=== PATIENT | female | born 1990 | race Caucasian/White ===

== ENCOUNTER 2025-02-07 13:47 | Emergency (ER) | payer OTHER, SELFPAY ==
--- NOTE | ~2025-02-07 | CT_ITS ---
CT abdomen pelvis w con Ordering provider: Lucretia Lanier APRN History: 34 years Female with . concern for perirectal abscess . Comparison: None. Technique: CT abdomen and pelvis with IV and without oral contrast. Automated exposure control and it erative reconstruction technique were employed. The dose-length product was 514.13 mGy-cm. 100 mL Omn ipaque 350 was given IV. Findings: VISUALIZED LOWER CHEST: Dependent atelectatic changes. UPPER ABDOMINAL ORGANS: Liver: Lobulated outline which may indicate cirrhosis. Clinical correlation and follow-up advised. Gallbladder: Cholelithiasis. Spleen: Normal. Stomach/duodenum: Normal. Pancreas: Normal. Adrenals: Normal. Kidneys: Normal. PELVIC ORGANS: The bladder is underfilled. Uterus: Normal. Small left ovarian follicle measuring 1.4 cm. BOWEL AND MESENTERY: Colon: No evidence of diverticulitis. Fecal material is loaded in the colon. Normal appendix. Small Bowel: Normal. No obstruction. Peritoneum/mesentery: No free air or free fluid. No mesenteric lymphadenopathy. RETROPERITONEUM: Normal aorta. No retroperitoneal lymphadenopathy. MUSCULOSKELETAL: Superficial soft tissues: Left perianal abscess is seen which measures 1.1 x 1.5 cm. Fat stranding al so seen in the area. Otherwise, The superficial soft tissues are normal. Bones: Normal spine. IMPRESSION: 1. Left perianal abscess measuring 1.1 x 1.5 cm. 2. Cholelithiasis. 3. Possible liver cirrhosis. Clinical correlation and further evaluation advised. 4. Constipation. Reviewed, dictated and finalized at location A. IMPRESSION: 1. Left perianal abscess measuring 1.1 x 1.5 cm. 2. Cholelithiasis. 3. Possible liver cirrhosis. Clinical correlation and further evaluation advis ed. 4. Constipation.
[2025-02-07 14:17] VITALS: BP 108/81; PULSE 90; RESP 18; TEMP 36.6; O2SAT 95
--- NOTE | 2025-02-07 14:50 | ED.SKABFB ---
HPI - Skin/Abscess/Foreign Bdy General Chief complaint: Skin/Abscess/Foreign Body <Lucretia Lanier APRN - Last Filed: 02/08/25 18:20> Stated complaint: abscess <Lucretia Lanier APRN - Last Filed: 02/08/25 18:20> Time Seen by Provider: 02/07/25 13:54 <Lucretia Lanier APRN - Last Filed: 02/08/25 18:20> History of Present Illness HPI narrative: Patient is a 34-year-old female presents to the ER with complaints of an abscess near her rectum. 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 Patient denies any urinary symptoms, recent fevers, or drainage from the rectum. She reports her last bowel movement was on Saturday and it was normal for her but painful. Patient endorses a significant history of mental health issues, peripheral neuropathy and seizures. <Lucretia Lanier APRN - Last Filed: 02/08/25 18:20> Related Data Allergies/Adverse reactions: Allergies Allergy/AdvReac Type Severity Reaction Status Date / Time fentanyl AdvReac Intermediate Agitated Verified 02/07/25 14:23 trazodone AdvReac Intermediate Agitated Verified 02/07/25 14:23 <Lucretia Lanier APRN - Last Filed: 02/08/25 18:20> Review of Systems Review of Systems: All systems reviewed & are unremarkable except as noted in HPI and below <Lucertia Lanier APRN - Last Filed: 02/08/25 18:20> Exam Narrative: GENERAL: Well appearing, well-nourished, non-toxic, in no acute distress. HEAD: Normocephalic, atraumatic. NECK: Supple. No adenopathy, no masses. RESPIRATORY: Airway patent, respirations nonlabored. Clear to auscultation bilaterally, no rales, rhonchi, wheezing. CARDIOVASCULAR: Regular rate and rhythm without murmurs, rubs, or gallops. Peripheral pulses 2+ and equal bilaterally. ABDOMINAL: Soft, nontender, nondistended, no hepatosplenomegaly. Normoactive BS. MUSCULOSKELETAL: Moves all extremities. Strength/ROM intact without gross deformities. SKIN: Warm, dry, normal color. No rashes. NEURO: A&O X3. Speech clear. Cranial nerves II-XII intact. No ataxic movements. PSYCHIATRIC: Appropriate mood and affect. Normal interaction. : Palpable indurated mass 9 o'clock position from pt's rectum. Approximately quarter-sized with palpation, firm. No discharge. No visualized head. <Lucretia Lanier, WIRELESS CONSTRUCTION MANAGER - Last Filed: 02/08/25 18:20> Course Vital Signs Vital signs: Vital Signs Temperature 36.6 C 02/07/25 14:17 Pulse Rate 90 02/07/25 14:17 Respiratory Rate 18 02/07/25 14:17 Blood Pressure 108/81 02/07/25 14:17 Pulse Oximetry 95 02/07/25 14:17 Oxygen Delivery Room Air 02/07/25 14:17 Temperature 36.6 C 02/07/25 14:17 Pulse Rate 77 02/07/25 18:14 Respiratory Rate 18 02/07/25 18:14 Blood Pressure 118/74 02/07/25 18:14 Pulse Oximetry 100 02/07/25 18:14 Oxygen Delivery Room Air 02/07/25 14:17 <Lucretia Lanier, WIRELESS CONSTRUCTION MANAGER - Last Filed: 02/08/25 18:20> Vital Signs Temperature 36.6 C 02/07/25 14:17 Pulse Rate 90 02/07/25 14:17 Respiratory Rate 18 02/07/25 14:17 Blood Pressure 108/81 02/07/25 14:17 Pulse Oximetry 95 02/07/25 14:17 Oxygen Delivery Room Air 02/07/25 14:17 Temperature 36.6 C 02/07/25 14:17 Pulse Rate 77 02/07/25 18:14 Respiratory Rate 18 02/07/25 18:14 Blood Pressure 118/74 02/07/25 18:14 Pulse Oximetry 100 02/07/25 18:14 Oxygen Delivery Room Air 02/07/25 14:17 <Sumi Seals MD - Last Filed: 02/07/25 17:48> Procedures Abscess I/D kvng-rectal: Date of Incision: 02/07/25 <Sumi Seals MD - Last Filed: 02/07/25 17:48> Time of Incision: 17:45 <Sumi Seals MD - Last Filed: 02/07/25 17:48> Side (if applicable): left <Sumi Seals MD - Last Filed: 02/07/25 17:48> Local Anesthetic: lidocaine 1% and with epi <Sumi Seals MD - Last Filed: 02/07/25 17:48> Amount of anesthesia used (mL): 5 <Sumi Seals MD - Last Filed: 02/07/25 17:48> Technique: needle aspiration <Sumi Seals MD - Last Filed: 02/07/25 17:48> Amount of fluid expressed (mL): 2 <Sumi Seals MD - Last Filed: 02/07/25 17:48> Irrigation: No <Sumi Seals MD - Last Filed: 02/07/25 17:48> Packing used?: none <Sumi Seals MD - Last Filed: 02/07/25 17:48> I&D Results: Pus <Sumi Seals MD - Last Filed: 02/07/25 17:48> Complications: pain <Sumi Seals MD - Last Filed: 02/07/25 17:48> MDM - Skin/Abscess/Foreign Bdy MDM Narrative Medical decision making narrative: Patient is a 34-year-old female presents to the ER with complaints of an abscess near her rectum. 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 Patient denies any urinary symptoms, recent fevers, or drainage from to the rectum. She reports her last bowel movement was on Saturday and it was normal for her but painful. Patient endorses a significant history of mental health issues, peripheral neuropathy and seizures. Labs Ordered: CBC, CMP, CRP, lactic acid, blood cultures, UA Imaging Ordered: CT abdomen pelvis Medications Ordered: 1 L normal saline IV bolus, Zosyn IV, morphine 4 mg IV, lidocaine with epinephrine infiltrate, [place] p.o. Results: Patient's CT scan indicates 1. Left perianal abscess measuring 1.1 x 1.5 cm. 2. Cholelithiasis. 3. Possible liver cirrhosis. Clinical correlation and further evaluation advised. 4. Constipation. Diagnosis: Perianal abscess, Cholelithiasis Consults: 1629- Spoke with general surgeon, Dr. Carrillo, who advised abscess be drained in the ER. 1744- Dr. Seals performed I & D procedure with 18g needle. He aspirated approximately 2ml of fluid from the abscess site. Patient Education/Shared MDM: Results of lab work, imaging, and procedure shared with patient. She endorses improvement of symptoms following pain medication administration. Patient strongly advised to complete her full dose of antibiotics and follow-up with general surgery outpatient as soon as possible. She will be discharged home with a prescription for Clindamycin and [place]. Strict return precautions provided. Patient verbalized understanding and is in agreement with plan. Vital signs stable at time of discharge. All questions answered. <Lucretia Lanier APRN - Last Filed: 02/08/25 18:20> Differential Diagnosis Differential diagnosis: Likely abscess of skin or subcutaneous tissue, cellulitis and other (perianal abscess) <Lucretia Lanier APRN - Last Filed: 02/08/25 18:20> Lab Data Attestation: I reviewed the patient's lab results. <Lucretia Lanier APRN - Last Filed: 02/08/25 18:20> Result diagrams: 02/07/25 15:08 02/07/25 15:08 <Lucretia Lanier APRN - Last Filed: 02/08/25 18:20> Labs: Lab Results 02/07/25 02/07/25 02/07/25 Range/Units 15:08 15:15 16:46 WBC 12.2 H (4.5-10.0) K/mm3 RBC 4.30 (4.2-5.4) M/mm3 Hgb 11.9 L (12.0-15.0) g/dL Hct 36.2 L (37.0-47.0) % MCV 84.2 (80-100) fl MCH 27.7 (26-34) pg MCHC 32.9 (32-36) g/dl RDW 13.1 (11.5-14.5) % Plt Count 297 (150-375) k/mm3 MPV 10.2 (7.4-10.4) fl Immature Gran % (Auto) 0.3 (0-0.5) % Neut % (Auto) 65.3 (45.5-73.1) % Lymph % (Auto) 27.8 (18.3-44.2) % [place] % (Auto) 5.3 (2.6-8.5) % Eos % (Auto) 0.8 (0-4.4) % Baso % (Auto) 0.5 (0.2-1.2) % Lymph # (Auto) 3.39 H (0.9-3.2) K/mm3 [place] # (Auto) 0.6 (0.1-0.6) K/mm3 Eos # (Auto) 0.1 (0-0.3) K/mm3 Baso # (Auto) 0.1 (0.0-0.1) K/mm3 Abs Immat Gran (auto) 0.04 H (0.00-0.031) K/mm3 Absolute Neuts (auto) 8.0 H (1.3-6.7) K/mm3 Absolute Nucleated RBC 0.000 (0.0-0.012) K/mm3 Nucleated RBC % 0.0 (0.0-0.2) % Sodium 138 (137-145) mmol/L Potassium 4.0 (3.4-5.0) mmol/L Chloride 104 (98-107) mmol/L Carbon Dioxide 27 (22-30) mmol/L Anion Gap 7 (4-12) mmol/L BUN 8 (7-17) mg/dL Creatinine 0.61 L (0.7-1.0) mg/dL Estim Creat Clear Calc 114 ml/min Estimated GFR > 60 (59 - ) Glucose 101 (65-110) mg/dL Lactic Acid 0.8 (0.7-2.0) mmol/L Calcium 9.1 (8.4-10.2) mg/dL Total Bilirubin 0.9 (0.2-1.3) mg/dL AST 26 (14-36) U/L ALT 18 (6-35) U/L Alkaline Phosphatase 42 (38-126) U/L C-Reactive Protein 4.7 H (<1.0) mg/dL Total Protein 8.0 (6.3-8.2) g/dL Albumin 4.3 (3.5-5.1) g/dL Urine Color Yellow (Yellow) Urine Appearance Cloudy H (Clear) Urine pH 6.0 (5.0-9.0) Ur Specific [place] 1.020 (1.001-1.035) Urine Protein Negative (Negative) mg/dL Urine Glucose (UA) Negative (Negative) mg/dL Urine Ketones Trace H (Negative) mg/dL Ur Blood (Man) Negative (Negative) Urine Nitrate Negative (Negative) Urine Bilirubin Negative (Negative) Urine Urobilinogen 1.0 (<2.0) mg/dL Leukocyte Esterase Rfl 3+ H (Negative) CHRISTIAN/UL Urine RBC 0-2 (0-2) /hpf Urine WBC 51-100 H (0-3) /hpf Ur Squamous Epith Cells Few (Few) /hpf Urine Bacteria 3+ H /hpf Urine Casts 0-2 POC Urine HCG, Qual Negative (Negative) <Lucretia Lanier, PRADEEP - Last Filed: 02/08/25 18:20> Lab Results 02/07/25 02/07/25 02/07/25 Range/Units 15:08 15:15 16:46 WBC 12.2 H (4.5-10.0) K/mm3 RBC 4.30 (4.2-5.4) M/mm3 Hgb 11.9 L (12.0-15.0) g/dL Hct 36.2 L (37.0-47.0) % MCV 84.2 (80-100) fl MCH 27.7 (26-34) pg MCHC 32.9 (32-36) g/dl RDW 13.1 (11.5-14.5) % Plt Count 297 (150-375) k/mm3 MPV 10.2 (7.4-10.4) fl Immature Gran % (Auto) 0.3 (0-0.5) % Neut % (Auto) 65.3 (45.5-73.1) % Lymph % (Auto) 27.8 (18.3-44.2) % [place] % (Auto) 5.3 (2.6-8.5) % Eos % (Auto) 0.8 (0-4.4) % Baso % (Auto) 0.5 (0.2-1.2) % Lymph # (Auto) 3.39 H (0.9-3.2) K/mm3 [place] # (Auto) 0.6 (0.1-0.6) K/mm3 Eos # (Auto) 0.1 (0-0.3) K/mm3 Baso # (Auto) 0.1 (0.0-0.1) K/mm3 Abs Immat Gran (auto) 0.04 H (0.00-0.031) K/mm3 Absolute Neuts (auto) 8.0 H (1.3-6.7) K/mm3 Absolute Nucleated RBC 0.000 (0.0-0.012) K/mm3 Nucleated RBC % 0.0 (0.0-0.2) % Sodium 138 (137-145) mmol/L Potassium 4.0 (3.4-5.0) mmol/L Chloride 104 (98-107) mmol/L Carbon Dioxide 27 (22-30) mmol/L Anion Gap 7 (4-12) mmol/L BUN 8 (7-17) mg/dL Creatinine 0.61 L (0.7-1.0) mg/dL Estim Creat Clear Calc 114 ml/min Estimated GFR > 60 (59 - ) Glucose 101 (65-110) mg/dL Lactic Acid 0.8 (0.7-2.0) mmol/L Calcium 9.1 (8.4-10.2) mg/dL Total Bilirubin 0.9 (0.2-1.3) mg/dL AST 26 (14-36) U/L ALT 18 (6-35) U/L Alkaline Phosphatase 42 (38-126) U/L C-Reactive Protein 4.7 H (<1.0) mg/dL Total Protein 8.0 (6.3-8.2) g/dL Albumin 4.3 (3.5-5.1) g/dL Urine Color Yellow (Yellow) Urine Appearance Cloudy H (Clear) Urine pH 6.0 (5.0-9.0) Ur Specific [place] 1.020 (1.001-1.035) Urine Protein Negative (Negative) mg/dL Urine Glucose (UA) Negative (Negative) mg/dL Urine Ketones Trace H (Negative) mg/dL Ur Blood (Man) Negative (Negative) Urine Nitrate Negative (Negative) Urine Bilirubin Negative (Negative) Urine Urobilinogen 1.0 (<2.0) mg/dL Leukocyte Esterase Rfl 3+ H (Negative) CHRISTIAN/UL Urine RBC 0-2 (0-2) /hpf Urine WBC 51-100 H (0-3) /hpf Ur Squamous Epith Cells Few (Few) /hpf Urine Bacteria 3+ H /hpf Urine Casts 0-2 POC Urine HCG, Qual Negative (Negative) <Sumi Seals MD - Last Filed: 02/07/25 17:48> Imaging Data Attestation: I personally reviewed and interpreted this imaging study as follows: <Lucretia Lanier APRN - Last Filed: 02/08/25 18:20> Radiologist's impression: Impressions Abdomen/Pelvis CT 02/07/25 15:51 IMPRESSION: 1. Left perianal abscess measuring 1.1 x 1.5 cm. 2. Cholelithiasis. 3. Possible liver cirrhosis. Clinical correlation and further evaluation advised. 4. Constipation. <Lucretia Lanier APRN - Last Filed: 02/08/25 18:20> Discharge Plan Discharge Clinical Impression: Abscess of skin or subcutaneous tissue, Perianal abscess, Urinary tract infection <Lucretia Lanier APRN - Last Filed: 02/08/25 18:20> Patient Disposition: Home <Lucretia Lanier APRN - Last Filed: 02/08/25 18:20> Condition: Guarded Prognosis <Lucretia Lanier APRN - Last Filed: 02/08/25 18:20> Instructions: Antibiotic Form, Abscess (ED) <Lucretia Lanier APRN - Last Filed: 02/08/25 18:20> Additional Instructions: Please return to the ER with any worsening symptoms. Follow-up with General surgery as soon as possible for further evaluation. Take all medications as prescribed, including regularly scheduled medications. Complete your full dose of antibiotics. <Lucretia Lanier APRN - Last Filed: 02/08/25 18:20> Patient Language: [place]isian <Lucretia Lanier APRN - Last Filed: 02/08/25 18:20> Prescriptions: New clindamycin HCl [Cleocin HCl] 300 mg capsule 450 mg PO TID Qty: 30 0RF hydrocodone-acetaminophen 5-325 mg tablet 1 tablet PO Q6H PRN (Reason: pain) Qty: 14 0RF <Lucretia Lanier APRN - Last Filed: 02/08/25 18:20> Follow-up/Referrals: PHYSICIAN,MOTION PICTURE SET UP WORKER [Primary Care Provider] - Matheus Carrillo DO [Physician] - (general surgery) <Lucretia Lanier APRN - Last Filed: 02/08/25 18:20> Stand Alone Forms: Work/School Release IP <Lucretia Lanier APRN - Last Filed: 02/08/25 18:20> Time of Disposition: 17:52 <Lucretia Lanier APRN - Last Filed: 02/08/25 18:20> 17:52 <Sumi Seals MD - Last Filed: 02/07/25 17:48>
[2025-02-07] MEDS: HYDROcodone/acetaminophen (*CRX) 5-325 MG TABLET 1 TAB PO (15:07)
[2025-02-07 15:17] LABS: BEDSIDEPREGUCG Negative (Negative)
[2025-02-07 15:17] LABS: Basophils Absolute Auto 0.1 K/mm3 (0.0-0.1); Basophils Percent Auto 0.5 % (0.2-1.2); Eosinophils Absolute Auto 0.1 K/mm3 (0-0.3); Eosinophils Percent Auto 0.8 % (0-4.4); Hematocrit 36.2 % (37.0-47.0); Hemoglobin 11.9 g/dL (12.0-15.0); Immature Granulocyte Absolute 0.04 K/mm3 (0.00-0.031); Immature Granulocyte Percent A 0.3 % (0-0.5); Lymphocytes Absolute Auto 3.39 K/mm3 (0.9-3.2); Lymphocytes Percent Auto 27.8 % (18.3-44.2); Mean Corpuscular HGB Conc 32.9 g/dl (32-36); Mean Corpuscular Hemoglobin 27.7 pg (26-34); Mean Corpuscular Volume 84.2 fl (80-100); Mean Platelet Volume 10.2 fl (7.4-10.4); Monocytes Absolute Auto 0.6 K/mm3 (0.1-0.6); Monocytes Percent Auto 5.3 % (2.6-8.5); Neutrophils Percent Auto 65.3 % (45.5-73.1); Platelet Count Result 297 k/mm3 (150-375); Red Cell Distribution Width 13.1 % (11.5-14.5); White Blood Count 12.2 K/mm3 (4.5-10.0)
[2025-02-07 15:24] LABS: Add Urine Microscopic? YES; Appearance Urine Cloudy (Clear); Bacteria Urine 3+ /hpf; Bilirubin Urine Negative (Negative); Blood Urine Negative (Negative); Color Urine Yellow (Yellow); Glucose Urine UA Negative (Negative); Ketones Urine Trace mg/dL (Negative); Leukocyte Esterase Ur 3+ LEU/UL (Negative); Nitrate Urine Negative (Negative); Non Pathogenic Casts 0-2; Protein Urine Negative (Negative); RBC Urine 0-2 /hpf (0-2); Squamous Epithelial Cell Urine Few /hpf (Few); WBC Urine 51-100 /hpf (0-3)
[2025-02-07 15:28] LABS: Alanine Aminotransferase 18 U/L (6-35); Albumin Level 4.3 g/dL (3.5-5.1); Alkaline Phosphatase 42 U/L (38-126); Anion Gap 7 mmol/L (4-12); Aspartate Amino Transferase 26 U/L (14-36); Bilirubin,Total 0.9 mg/dL (0.2-1.3); Blood Urea Nitrogen 8 mg/dL (7-17); Calcium 9.1 mg/dL (8.4-10.2); Carbon Dioxide 27 mmol/L (22-30); Chloride 104 mmol/L (98-107); Estimated CRCL calculation 114 ml/min; Estimated Glomerular Filt Rate > 60; Glucose 101 mg/dL (65-110); Sodium 138 mmol/L (137-145)
[2025-02-07] MEDS: PIPERACILLN/TAZ 3.375GM/NS50ML 3.375 GM/50 ML BAG IVPB (16:27)
[2025-02-07] MEDS: SODIUM CHLORIDE 0.9% IV 1,000 ML 999 ML IV CONT (16:28)
[2025-02-07 17:03] LABS: Lactic Acid Reflex 0.8 mmol/L (0.7-2.0)
[2025-02-07] MEDS: MORPHINE SULFATE (*CRX) 4 MG/ML INJ IV PUSH (17:03)
[2025-02-07 17:10] LABS: CRP 4.7 mg/dL (<1.0)
[2025-02-07 18:14] VITALS: BP 118/74; BP 124/78; PULSE 77; RESP 18; RESP 20; O2SAT 100
== END 2025-02-07 18:16 | disposition home or self-care (01) ==
PROVIDERS: Registered Nurse; Emergency Provider Emergency Medicine
DX: K61.0 Anal abscess (principal); N39.0 Urinary tract infection, site not specified; G62.9 Polyneuropathy, unspecified; K80.20 Calculus of gallbladder without cholecystitis without obstruction; K59.00 Constipation, unspecified
CPT/HCPCS: 10160; 36415; 46050; 74177; 80053; 81001; 81025; 83605; 85025; 86140; 87040; 87070; 87075; 87086; 87186; 87205; 96365; 96375; 99284; A9270; J2270; J2543; J7030; Q9967

== ENCOUNTER 2025-05-14 17:23 | Emergency (ER) | payer OTHER, SELFPAY | END 2025-05-14 19:12 | disposition left against medical advice (07) | DX: Z53.21 Procedure and treatment not carried out due to patient leaving prior to being seen by health care provider (principal) | CPT/HCPCS: 99199 ==